=== PATIENT | female | born 1980 | race Caucasian/White ===

== ENCOUNTER → 2017-07-07 | Outpatient (CLI) | payer OTHER ==
[~2017-07-07] MED LIST: Bactrim Ds Tab1 EACH PO; Cipro500 MG PO; Hair, Skin & N1 EACH PO; NITR100CA PO; PROM25 PO; Percocet 5-3251 EACH PO; Pyridium200 MG PO
== END | disposition home or self-care (01) ==
LOC: LAB SHORT 13:59 → PLD 13:59
DX: N87.9 Dysplasia of cervix uteri, unspecified (principal); B97.7 Papillomavirus as the cause of diseases classified elsewhere
CPT/HCPCS: 88305; 88342

== ENCOUNTER → 2018-07-12 | Outpatient (CLI) | payer OTHER ==
[2018-07-14 15:08] LABS: HPV 16 Negative (Negative); HPV 18 Negative (Negative); HPV OTHER HR TYPES Negative (Negative)
== END | disposition home or self-care (01) ==
LOC: LAB 15:32 → LAB SHORT 15:32
PROVIDERS: Obstetrics & Gynecology
DX: Z01.419 Encounter for gynecological examination (general) (routine) without abnormal findings (principal)
CPT/HCPCS: 87624; G0123

== ENCOUNTER → 2020-09-04 | Outpatient (CLI) | payer OTHER ==
[2020-09-05 15:12] LABS: HPV 16 Negative (Negative); HPV 18 Negative (Negative); HPV OTHER HR TYPES Negative (Negative)
[2020-09-07 09:07] LABS: CHLAMYDIA BY NAA Negative (Negative); GONOCOCCUS BY NAA Negative (Negative); TRICH VAG BY NAA Negative (Negative)
== END | disposition home or self-care (01) ==
LOC: LAB 12:55 → LAB SHORT 12:55
PROVIDERS: Nurse Practitioner
DX: Z12.4 Encounter for screening for malignant neoplasm of cervix (principal); Z11.3 Encounter for screening for infections with a predominantly sexual mode of transmission
CPT/HCPCS: 87070; 87205; 87491; 87591; 87624; 87661; G0123

== ENCOUNTER 2024-07-08 09:26 | Emergency (ER) | payer OTHER ==
[~2024-07-08] VITALS: Ht 157.5 cm; Wt 89.8 kg
[2024-07-08 09:28] VITALS: BP 166/105
== END 2024-07-08 11:03 | disposition home or self-care (01) ==
LOC: ER 09:26
DX: S93.402A Sprain of unspecified ligament of left ankle, initial encounter (principal); W10.9XXA Fall (on) (from) unspecified stairs and steps, initial encounter; Z88.0 Allergy status to penicillin; Z88.1 Allergy status to other antibiotic agents; Z87.891 Personal history of nicotine dependence
CPT/HCPCS: 73610; 73630; 99283-25

== ENCOUNTER → 2025-03-06 | Outpatient (CLI) | payer OTHER ==
[2025-03-06 14:04] LABS: BASOPHILS ABSOLUTE AUTO 0.05 K/mm3 (0.00-0.23); BASOPHILS PERCENT AUTO 1 % (0-2); EOSINOPHILS ABSOLUTE AUTO 0.14 K/mm3 (0.00-0.68); EOSINOPHILS PERCENT AUTO 2 % (0-6); Hematocrit 37.2 % (33.0-51.0); Hemoglobin 12.4 g/dL (11.5-16.0); IMMATURE GRAN ABSOLUTE AUTO 0.01 K/mm3 (0.00-0.10); IMMATURE GRAN PERCENT AUTO 0 % (0-1); LYMPHOCYTES ABSOLUTE AUTO 1.38 K/mm3 (0.84-5.20); LYMPHOCYTES PERCENT AUTO 20 % (21-46); MONOCYTES ABSOLUTE AUTO 0.64 K/mm3 (0.16-1.47); MONOCYTES PERCENT AUTO 9 % (4-13); Mean Corpuscular HGB Conc 33.3 g/dL (31.5-36.5); Mean Corpuscular Volume 83 fL (80-100); NEUTROPHILS ABSOLUTE AUTO 4.62 K/mm3 (1.96-9.15); NEUTROPHILS PERCENT AUTO 68 % (41-73); NRBC ABSOLUTE 0.00 K/mm3 (0.00-0.02); NRBC Auto 0.0 /100 WBC (0.0-0.2); Platelet Count 387 K/mm3 (150-400); RDW Coefficient Variation 13.6 % (11.7-14.2); RDW Standard Deviation 41.1 fL (35.1-46.3)
[2025-03-06 14:13] LABS: Alanine Aminotransfer (ALT/SGP 26.0 U/L (12-78); Albumin, Blood 3.8 g/dL (3.4-5.0); Albumin/Globulin Ratio 1.1 (0.8-1.8); Anion Gap 12.0 mmol/L (3-11); Aspartate Aminotrans (AST/SGOT 19.0 U/L (12-37); Bilirubin, Total 0.8 mg/dL (0.1-1.0); Blood Urea Nitrogen 7.0 mg/dL (8-24); CO2, Blood 29.0 mmol/L (21-32); Calcium, Blood 8.9 mg/dL (8.5-10.1); Chloride, Blood 102.0 mmol/L (98-108); Creatinine, Blood 0.71 mg/dL (0.40-1.00); Globulin, Blood 3.5 g/dL (2.2-4.0); Glucose, Blood 87.0 mg/dL (70-99); Potassium, Blood 3.5 mmol/L (3.5-5.5); Sodium, Blood 139.0 mmol/L (136-145); Total Protein, Blood 7.3 g/dL (6.4-8.2)
[2025-03-08 05:49] LABS: CYCLIC CITRULLINATED PEP,IGG/A 2 Units (0-19)
== END ==
LOC: LAB 13:55 → LAB SHORT 13:55
PROVIDERS: Student in an Organized Health Care Education/Training Program
DX: M25.50 Pain in unspecified joint (principal)
CPT/HCPCS: 80053; 85025; 85651; 86140; 86200; 86430